=== PATIENT | male | born 1985 | race Caucasian/White ===

== ENCOUNTER 2016-03-29 10:15 | Day surgery (SDC) | payer OTHER ==
[~2016-03-29] VITALS: Ht 175.3 cm; Wt 93.1 kg
[2016-03-29] VITALS (10 sets, daily range): BP systolic 111–136; BP diastolic 58–88; PULSE 74–103; TEMP 98–98.5
[2016-03-29] MEDS ORDERED: NEXIUM 40MG40 MG PO (11:57)
[2016-03-29] MEDS ORDERED: NORCO 325 MG-7.1 TAB PO (11:57)
[2016-03-30 02:04] VITALS: BP 121/62; PULSE 88; TEMP 98.5
[2016-03-30 05:11] VITALS: BP 129/59; PULSE 74; TEMP 97.5
[2016-03-30 10:09] VITALS: BP 126/68; PULSE 71; TEMP 97.8
[2016-03-30 13:29] VITALS: BP 142/74; PULSE 89; TEMP 99.7
== END 2016-03-30 17:30 | disposition home or self-care (01) ==
LOC: SDCO 10:15 → SURG 17:01 → SDCO 03-30 17:30
DX: K21.9 Gastro-esophageal reflux disease without esophagitis (principal); K44.9 Diaphragmatic hernia without obstruction or gangrene
CPT/HCPCS: OP; C1713; J1100; J1885; J2405; J2704; J2710; J2765; J3010; J7042; J7120